=== PATIENT | female | born 1970 | race African-American/Black ===

== ENCOUNTER 2019-08-18 11:25 | Emergency (ER) | payer BC ==
[~2019-08-18] VITALS: Ht 180.3 cm; Wt 82.0 kg
[2019-08-18] MEDS ORDERED: SODIUM CHLORIDE 0.9% 1,000 ML IV ONE (11:43)
[2019-08-18 12:12] LABS: BASOPHILS % 1.4 % (0.0-2.0); EOSINOPHILS % 1.7 % (0.0-5.0); HEMATOCRIT. 38.2 % (36.0-48.0); HEMOGLOBIN. 12.3 g/dL (12.0-16.0); MEAN CORPUSCULAR HEMOGLOBIN 26.2 pg (28.0-32.0); MEAN CORPUSCULAR VOLUME 81.2 fL (81.0-99.0); MEAN PLATELET VOLUME 9.2 fl (7.4-10.4); NEUTROPHILS % 59.9 % (40.0-76.0); PLATELET 296 x1000/uL (130-400); RED BLOOD CELL COUNT 4.71 mill/uL (4.2-5.4); RED CELL DISTRIBUTION WIDTH 16.9 % (11.6-14.6)
[2019-08-18 12:16] LABS: CHLORIDE 107 mEq/L (98-107)
[2019-08-18 12:22] LABS: PARTIAL THROMBOPLASTIN TIME 28.5 sec (23.4-31.0); PROTHROMBIN TIME 11.3 sec (9.6-11.0)
[2019-08-18 12:43] LABS: HCG SCREEN NEGATIVE
[2019-08-18 15:41] VITALS: BP 132/85
== END 2019-08-18 15:48 | disposition home or self-care (01) ==
LOC: ER 11:25
DX: S09.90XA Unspecified injury of head, initial encounter (principal); M54.12 Radiculopathy, cervical region; D21.9 Benign neoplasm of connective and other soft tissue, unspecified; I49.9 Cardiac arrhythmia, unspecified; Z98.890 Other specified postprocedural states; Z91.018 Allergy to other foods; W22.8XXA Striking against or struck by other objects, initial encounter; Y93.89 Activity, other specified; Y92.89 Other specified places as the place of occurrence of the external cause; Y99.8 Other external cause status
CPT/HCPCS: 36415; 70450; 71045; 72141; 80053; 81025; 84703; 85025; 85610; 85730; 93005; 99285; J7030

== ENCOUNTER 2022-04-12 09:08 | Emergency (ER) | payer SELFPAY ==
[~2022-04-12] VITALS: Ht 180.3 cm; Wt 90.0 kg
[2022-04-12 09:32] VITALS: BP 135/95
[2022-04-12] MEDS ORDERED: ONDANSETRON 4MG ODT PO STA (10:11)
[2022-04-12] MEDS ORDERED: IBUPROFEN 600MG TABLET PO STA (10:11)
[2022-04-12] MEDS ORDERED: HYDROCODONE/ACETAMINOPHEN 5/325MG TABLET PO ONE (11:15)
[2022-04-12 11:27] LABS: BASOPHILS % 0.9 % (0.0-2.0); EOSINOPHILS % 1.7 % (0.0-5.0); HEMATOCRIT. 44.1 % (36.0-48.0); HEMOGLOBIN. 14.1 g/dL (12.0-16.0); LYMPHOCYTES % 32.9 % (20.0-50.0); MEAN CORPUSCULAR HEMOGLOBIN 27.6 pg (28.0-32.0); MEAN CORPUSCULAR VOLUME 86.4 fL (81.0-99.0); MEAN PLATELET VOLUME 9.4 fl (7.4-10.4); MONOCYTES % 8.1 % (2.0-8.0); NEUTROPHILS % 56.4 % (40.0-76.0); PLATELET 283 x1000/uL (130-400); RED BLOOD CELL COUNT 5.11 mill/uL (4.2-5.4); RED CELL DISTRIBUTION WIDTH 14.2 % (11.6-14.6)
[2022-04-12 11:31] LABS: CHLORIDE 108 mEq/L (98-107)
[2022-04-12 11:40] LABS: CLARITY URINE CLOUDY (CLEAR); COLOR URINE ORANGE (YELLOW); KETONES URINE NEGATIVE (NEGATIVE); LEUKOCYTE ESTERASE URINE TRACE (NEGATIVE); NITRITE URINE NEGATIVE (NEGATIVE); OCCULT BLOOD URINE 3+ (NEGATIVE); PH URINE 7.5 (4.5-8.0); PROTEIN URINE TRACE (NEGATIVE); SPECIFIC GRAVITY URINE 1.016 (1.005-1.030)
[2022-04-12] MEDS ORDERED: DOCU-138 MT (13:20)
[2022-04-12] MEDS ORDERED: IBUP-2029 MT (13:20)
[2022-04-12] MEDS ORDERED: POLY17PO3 MT (13:20)
== END 2022-04-12 14:09 | disposition home or self-care (01) ==
LOC: ER 09:08
DX: K59.00 Constipation, unspecified (principal); R31.9 Hematuria, unspecified; M54.9 Dorsalgia, unspecified; K80.20 Calculus of gallbladder without cholecystitis without obstruction; Z91.041 Radiographic dye allergy status; Z98.890 Other specified postprocedural states
CPT/HCPCS: 36415; 74176; 80053; 81003; 81025; 85025; 99284; Q0162